=== PATIENT | female | born 1980 | race Caucasian/White ===

== ENCOUNTER 2017-12-24 22:35 | Emergency (ER) | payer OTHER ==
[~2017-12-24] VITALS: Ht 160 cm; Wt 69.6 kg
[~2017-12-24 22:35] MED LIST: CIPRO250 M1 PO; NORCO 5-325 TA1 EACH PO; TAMSULOSIN HCL0.4 MG PO
[2017-12-24 23:16] LABS: HEMATOCRIT 40.8 % (37.0-47.0); HEMOGLOBIN 14.1 gm/dL (12.0-15.0); MCH 32.1 pg (26.0-34.0); MCHC 34.6 g/dL (28.0-37.0); MCV 92.8 fL (80.0-100.0); MPV 7.5 fl. (7.2-11.1); NUCLEATED RBCS 0 /100WBC; PLATELET COUNT* 193 thou/uL (150-400); RDW-CV 12.5 % (10.5-14.5); WBC 6.2 thou/uL (4.0-11.0)
[2017-12-24 23:21] LABS: URINE BILIRUBIN NEGATIVE (Negative); URINE BLOOD 3+ (Negative); URINE CLARITY CLEAR; URINE COLOR YELLOW; URINE GLUCOSE-RANDOM NEGATIVE (Negative); URINE KETONES NEGATIVE (Negative); URINE LEUKOCYTES-REFLEX 1+ (Negative); URINE NITRITE-REFLEX NEGATIVE (Negative); URINE PROTEIN 1+ (Negative); URINE UROBILINOGEN 0.2 E.U./dl (0.2-1.0)
[2017-12-24 23:23] LABS: CALCIUM 8.3 mg/dL (8.5-10.1); CREATININE 0.6 mg/dL (0.6-1.3); POTASSIUM 3.7 mmol/L (3.5-5.1)
[2017-12-24 23:30] LABS: BACTERIA-REFLEX >30 Many /HPF (None Seen); CASTS None Seen /LPF (None Seen); CRYSTALS None Seen /LPF (None Seen); MUCUS 0-3 Light strn/LPF (None Seen); SQUAMOUS 0-3 Few /LPF (0-3); URINE RBC >20 Many /HPF (0-2); WBC CLUMPS Few (None Seen)
[2017-12-24 23:34] LABS: ALBUMIN 3.7 g/dL (3.4-5.0); TOTAL BILIRUBIN 0.2 mg/dL (<0.1-1.0); TOTAL PROTEIN 7.3 g/dL (6.4-8.2)
[2017-12-25 00:15] LABS: ABSOLUTE EOSINOPHILS 0.2 thou/uL (0.0-0.7); ABSOLUTE LYMPHOCYTES 2.9 thou/uL (0.8-5.3); ABSOLUTE MONOCYTES 0.2 thou/uL (0.0-1.2); ABSOLUTE NEUTROPHILS 2.9 thou/uL (1.6-8.1); ATYPICAL LYMPHS 2 %
[2017-12-25 00:16] LABS: CLUMPED PLTS FEW; PLATELET ESTIMATE ADEQUATE
[2017-12-25] MEDS ORDERED: CIPROFLOXACIN500 M1 PO (00:36)
[2017-12-25] MEDS ORDERED: PYRIDIUM200 MG PO (00:36)
[2017-12-25 00:56] VITALS: BP 111/76
== END 2017-12-25 00:58 | disposition home or self-care (01) ==
LOC: M.ERS 22:35
PROVIDERS: Personal Emergency Response Attendant
DX: N39.0 Urinary tract infection, site not specified (principal); Z88.0 Allergy status to penicillin

== ENCOUNTER 2018-03-21 20:35 | Inpatient (IN) | payer OTHER ==
[~2018-03-21] VITALS: Ht 162.6 cm; Wt 65.3 kg
[~2018-03-21 20:35] MED LIST changes: +CIPROFLOXACIN500 M1 PO; +PYRIDIUM200 MG PO
[2018-03-21 20:42] VITALS: BP 137/77
[2018-03-21 21:03] LABS: URINE BILIRUBIN NEGATIVE (Negative); URINE BLOOD NEGATIVE (Negative); URINE CLARITY CLEAR; URINE COLOR YELLOW; URINE GLUCOSE-RANDOM NEGATIVE (Negative); URINE KETONES NEGATIVE (Negative); URINE LEUKOCYTES-REFLEX NEGATIVE (Negative); URINE NITRITE-REFLEX NEGATIVE (Negative); URINE PROTEIN NEGATIVE (Negative); URINE SPECIFIC GRAVITY <= 1.005 (1.005-1.030); URINE UROBILINOGEN 0.2 E.U./dl (0.2-1.0)
[2018-03-21 21:14] LABS: HEMATOCRIT 38.9 % (37.0-47.0); HEMOGLOBIN 13.2 gm/dL (12.0-15.0); MCH 31.7 pg (26.0-34.0); MCV 93.3 fL (80.0-100.0); MPV 7.9 fl. (7.2-11.1); NUCLEATED RBCS 0 /100WBC; PLATELET COUNT* 127 thou/uL (150-400); RBC 4.17 mil/uL (4.20-5.00); RDW-CV 12.9 % (10.5-14.5)
[2018-03-21 21:21] LABS: CALCIUM 8.2 mg/dL (8.5-10.1); CREATININE 0.7 mg/dL (0.6-1.3); POTASSIUM 3.3 mmol/L (3.5-5.1)
[2018-03-21 21:26] LABS: ALBUMIN 3.6 g/dL (3.4-5.0); TOTAL BILIRUBIN 1.1 mg/dL (<0.1-1.0); TOTAL PROTEIN 6.9 g/dL (6.4-8.2)
[2018-03-21 21:38] LABS: ABSOLUTE EOSINOPHILS 0.1 thou/uL (0.0-0.7); ABSOLUTE LYMPHOCYTES 3.1 thou/uL (0.8-5.3); ABSOLUTE MONOCYTES 0.2 thou/uL (0.0-1.2); ABSOLUTE NEUTROPHILS 1.7 thou/uL (1.6-8.1); ATYPICAL LYMPHS 18 %; MYELOCYTES 2 %; PLATELET ESTIMATE ADEQUATE; TOXIC GRANULATION 1+
[2018-03-21 21:58] LABS: INFLUENZA A ANTIGEN None Detected (None Detect); INFLUENZA B ANTIGEN None Detected (None Detect)
[2018-03-21 23:17] VITALS: BP 120/79
[2018-03-22 00:04] VITALS: BP 144/95
--- NOTE | 2018-03-22 00:39 | NUR ---
ARRIVED FROM ER ALERT AND ORIENTED X4. ORIENTED TO ROOM AND BED CONTROLS. DENIES NEED FOR PAIN OR NAUSEA MEDICATIONS. NPO AT THIS TIME. ASSESSMENT CHARTED. CALL LIGHT WITHIN REACH. WILL CONTINUE TO MONITOR.
--- NOTE | 2018-03-22 05:51 | NUR ---
ALERT AND ORIENTED X4. UP WITH STAND BY ASSIST AND WALKER. PATIENT NOT WANTING TO BE BOTHERED DURING NIGHT AND SET UP ONLY TIMES HE WANTED US TO COME INTO HIS ROOM. FREQUENTLY REFUSING CARES AND MEDICATIONS. REFUSING ACCUCHECKS AND INSULIN. PATIENT TOLD WHY IT IS IMPORTANT TO MONITOR BLOOD SUGARS AND TAKE INSULIN IF BLOOD SUGAR HIGH. USING PO PAIN MEDICATION TO CONTROL RIGHT LEG PAIN. DRESSING REMAINS OVER RIGHT KNEE. 2 HEMOVACS PATENT TO RIGHT KNEE. CONTINUES ON IV ANTIBIODICS WITHOUT ADVERSE REACTIONS. CALL LIGHT WITHIN REACH
[2018-03-22 07:44] LABS: HEMATOCRIT 40.1 % (37.0-47.0); HEMOGLOBIN 13.6 gm/dL (12.0-15.0); MCV 94.2 fL (80.0-100.0); MPV 8.2 fl. (7.2-11.1); RBC 4.26 mil/uL (4.20-5.00); WBC 7.6 thou/uL (4.0-11.0)
--- NOTE | 2018-03-22 07:57 | NUR ---
ALERT AND ORIENTED X4. DENIES NEED FOR PAIN OR NAUSEA MEDICATION. RESTING QUIETLY ON HOURLY ROUNDS. NPO AT THIS TIME. IVF INFUSING WITHOUT DIFFICULTY. CALL LIGHT WITHIN REACH. WILL CONTINUE TO MONITOR.
[2018-03-22 08:00] LABS: ALBUMIN 3.3 g/dL (3.4-5.0); CALCIUM 8.1 mg/dL (8.5-10.1); CREATININE 0.7 mg/dL (0.6-1.3); POTASSIUM 3.7 mmol/L (3.5-5.1); TOTAL BILIRUBIN 1.7 mg/dL (<0.1-1.0); TOTAL PROTEIN 6.6 g/dL (6.4-8.2)
[2018-03-22 08:45] VITALS: BP 129/70
[2018-03-22] MEDS ORDERED: IBUPROFEN 200200 M1 PO (11:16)
[2018-03-22 13:55] VITALS: BP 129/70
--- NOTE | 2018-03-22 14:31 | NUR ---
PATIENT DISCHARGED FROM UNIT AT 1415. ALERT AND ORIENTED X 4. VITAL SIGNS STABLE ON ROOM AIR. IV DISCONTINUED. DENIES NAUSEA. PAIN BEING MANAGED WITH PAIN MEDICATION. DISCHARGE INSTRUCTIONS GIVEN TO PATIENT. LEFT WITH ALL BELONGINGS. PATIENT LEFT WITH VIA CAR.
[2018-03-22 14:49] VITALS: BP 129/70
[2018-03-24 02:07] LABS: HEPATITIS B SURFACE AG Negative (Negative)
== END 2018-03-22 14:15 | disposition home or self-care (01) | DRG 866 ==
LOC: M.ERS 20:35 → M.TBA-ER 22:43 → M.ORTHSURG 23:36
PROVIDERS: Internal Medicine; Physician Assistant; ADMIT Internal Medicine
DX: B27.90 Infectious mononucleosis, unspecified without complication (principal); K80.20 Calculus of gallbladder without cholecystitis without obstruction; R74.8 Abnormal levels of other serum enzymes

== ENCOUNTER 2018-03-24 15:22 | Inpatient (IN) | payer OTHER ==
[~2018-03-24] VITALS: Ht 162.6 cm; Wt 65.8 kg
[~2018-03-24 15:22] MED LIST changes: +IBUPROFEN 200200 M1 PO
[2018-03-24 15:36] VITALS: BP 134/78
[2018-03-24 15:43] LABS: HEMATOCRIT 40.9 % (37.0-47.0); MCH 31.7 pg (26.0-34.0); MCHC 34.4 g/dL (28.0-37.0); MCV 92.4 fL (80.0-100.0); MPV 8.2 fl. (7.2-11.1); NUCLEATED RBCS 0 /100WBC; PLATELET COUNT* 138 thou/uL (150-400); RBC 4.43 mil/uL (4.20-5.00); WBC 11.9 thou/uL (4.0-11.0)
[2018-03-24 15:47] LABS: URINE BLOOD NEGATIVE (Negative); URINE CLARITY CLEAR; URINE COLOR YELLOW; URINE GLUCOSE-RANDOM NEGATIVE (Negative); URINE LEUKOCYTES-REFLEX NEGATIVE (Negative); URINE NITRITE-REFLEX NEGATIVE (Negative); URINE PROTEIN TRACE (Negative); URINE UROBILINOGEN 0.2 E.U./dl (0.2-1.0)
[2018-03-24 15:53] LABS: URINE KETONES 3+ (Negative)
[2018-03-24 15:57] LABS: ICTOTEST (BILI CONFIRMATORY) Positive (Negative); URINE BILIRUBIN 2+ (Negative)
[2018-03-24 15:58] LABS: ACETEST (KETONE CONFIRMATORY) Large (Negative)
[2018-03-24 16:01] LABS: TROPONIN-I LEVEL <0.06 ng/mL (<0.06)
[2018-03-24 16:03] LABS: CALCIUM 8.1 mg/dL (8.5-10.1); CREATININE 0.7 mg/dL (0.6-1.3); POTASSIUM 3.6 mmol/L (3.5-5.1)
[2018-03-24 16:13] LABS: ALBUMIN 3.1 g/dL (3.4-5.0); TOTAL BILIRUBIN 2.8 mg/dL (<0.1-1.0); TOTAL PROTEIN 6.9 g/dL (6.4-8.2)
[2018-03-24 16:18] LABS: ABSOLUTE BASOPHILS 0.1 thou/uL (0.0-0.2); ABSOLUTE MONOCYTES 1.5 thou/uL (0.0-1.2); ABSOLUTE NEUTROPHILS 2.3 thou/uL (1.6-8.1); ATYPICAL LYMPHS 35 %
[2018-03-24 16:20] LABS: PLATELET ESTIMATE DECREASED
[2018-03-24 20:45] VITALS: BP 114/74
[2018-03-24 21:15] VITALS: BP 118/71
[2018-03-25 04:35] VITALS: BP 112/72
[2018-03-25 05:16] LABS: HEMATOCRIT 38.3 % (37.0-47.0); MCH 32.1 pg (26.0-34.0); MCHC 34.1 g/dL (28.0-37.0); MCV 94.1 fL (80.0-100.0); MPV 8.4 fl. (7.2-11.1); RBC 4.06 mil/uL (4.20-5.00); RDW-CV 13.2 % (10.5-14.5); WBC 11.4 thou/uL (4.0-11.0)
[2018-03-25 05:33] LABS: ALBUMIN 2.7 g/dL (3.4-5.0); CALCIUM 7.9 mg/dL (8.5-10.1); CREATININE 0.6 mg/dL (0.6-1.3); POTASSIUM 3.3 mmol/L (3.5-5.1); TOTAL BILIRUBIN 1.9 mg/dL (<0.1-1.0); TOTAL PROTEIN 6.1 g/dL (6.4-8.2)
--- NOTE | 2018-03-25 07:46 | NUR ---
PATIENT ARRIVED ON FLOOR FROM ER ABOUT 2100. PATIENT ADMISSION HISTORY AND ASSESSMENT WAS COMPLETED CHARTED. IV FLUIDS AND ANTIBIOTICS WERE STARTED ORDERED. PATIENT WAS GIVEN PAIN MEDICINE TWICE FOR HEADACHE AND ONCE FOR ABDOMINAL PAIN. WILL CONTINUE TO MONITOR.
[2018-03-25 08:00] VITALS: BP 113/70
--- NOTE | 2018-03-25 14:24 | EKG ---
[place] [address] ELECTROCARDIOGRAM REPORT Name: KRISTI TURCIOS Janette Room: [address] ADM IN ..#: [id number] Admission: 03/24/18 Attend Phys: Rosa Mccormick MD Discharge: Date of : 80 Report #: [id number] THIS REPORT FOR: //name// [facility] ED Test Date: 2018-03-24 Test Time: 15:54:46 Pat Name: KRISTI TURCIOS Department: Room: [facility] Gender: F Surgical Services Assistant: Matt BRODERICK : 1980 Requested By: Jodi Rizvi Order Number: [id number] MD: Lonnie Garza Measurements Intervals [place] Rate: 97 P: 49 [place]: 127 QRS: 14 QRSD: 86 T: 7 QT: 362 QTc: 460 Interpretive Statements Sinus rhythm Low voltage, precordial leads Borderline T wave abnormalities Baseline wander in lead(s) V3 Compared to ECG 11/25/2013 00:47:56 Low QRS voltage now present Sinus tachycardia no longer present Electronically Signed On 03-25-2018 14:24:18 [employer]ARE GROUP LEADER by Lonnie Garza [email or web address] <ELECTRONICALLY SIGNED> By: Lonnie Garza MD, [facility] 03/25/18 1424 1554 1554 Lonine Garza MD, [facility] /EPI
--- NOTE | 2018-03-25 16:35 | NUR ---
ASSUMMED CARE OF PT AT 0730, PT ALERT AND ORIENTED, PT STATES ABDOMINAL PAIN IS BETTER THIS AM, BUT HAS MIGRAINE, OBTAINED ORDER FOR HEADACHE MEDICATION, ICE BAG GIVEN TO PT, IV PATENT AND INFUSING, PT HAD MRCP COMPLETED, TOLERATED WELL, ADVANCED TO CLEAR LIQUID DIET, PT STATES THAT AFTER EATING HER ABDOMINAL PAIN INCREASED STATES A "4" AFTER EATING BUT DOES NOT WANT PAIN MEDS AT THIS TIME, COMPLAINS OF NAUSEA MEDICATED PER ORDER, POTASSIUM LOW, REPLACED PER ORDERS, PT VISITING WITH FAMILY AND RESTING THRU OUT SHIFT, AMBULATES TO BATHROOM, PT STATES SHE FEELS STEADY WHEN UP, HOURLY ROUNDING COMLETED, ASSESSMENT COMPLETE, WILL CONTINUE TO MONITOR.
[2018-03-25 20:00] VITALS: BP 131/92
[2018-03-26 04:57] LABS: ABSOLUTE BASOPHILS 0.1 thou/uL (0.0-0.2); ABSOLUTE LYMPHOCYTES 10.1 thou/uL (0.8-5.3); ABSOLUTE MONOCYTES 0.7 thou/uL (0.0-1.2); ABSOLUTE NEUTROPHILS 2.4 thou/uL (1.6-8.1); BASOPHILS 0.7 %; EOSINOPHILS 0.2 %; HEMATOCRIT 37.8 % (37.0-47.0); HEMOGLOBIN 12.8 gm/dL (12.0-15.0); LYMPHOCYTES 75.6 %; MCH 31.9 pg (26.0-34.0); MCV 93.8 fL (80.0-100.0); MONOCYTES 5.5 %; MPV 8.2 fl. (7.2-11.1); NUCLEATED RBCS 0 /100WBC; PLATELET COUNT* 135 thou/uL (150-400); RBC 4.03 mil/uL (4.20-5.00); RDW-CV 13.4 % (10.5-14.5); WBC 13.3 thou/uL (4.0-11.0)
[2018-03-26 05:18] LABS: ALBUMIN 2.7 g/dL (3.4-5.0); CALCIUM 7.9 mg/dL (8.5-10.1); CREATININE 0.6 mg/dL (0.6-1.3); MAGNESIUM 1.8 mg/dL (1.8-2.4); PHOSPHORUS* 2.5 mg/dL (2.5-4.9); TOTAL BILIRUBIN 1.4 mg/dL (<0.1-1.0); TOTAL PROTEIN 5.9 g/dL (6.4-8.2)
--- NOTE | 2018-03-26 06:11 | NUR ---
PATIENT SLEPT PART OF THE NIGHT. PATIENT WAS GIVEN PAIN MEDICINE ONCE FOR A HEADACHE. PATIENT DID RUN A LOW GRADE TEMP OF 99.6 WAS THE HIGHEST. IV FLUIDS AND ANTIBIOTIC WAS GIVEN ORDERED. PATIENT TOOK A SHOWER THIS MORNING AND IS HOPING TO GO HOME TODAY. WILL CONTINUE TO MONITOR.
[2018-03-26 08:00] VITALS: BP 128/80
[2018-03-26 15:59] VITALS: BP 129/87
[2018-03-26 19:51] VITALS: BP 132/84
--- NOTE | 2018-03-27 05:36 | NUR ---
VSS, SEE ASSESSMENT. C/O HEADACHE, PRN EXCEDRIN AND TYLENOL GIVEN ORDERED WITH PARTIAL RELIEF. PT REPORTED CONSISTENT MILD NAUSEA WITH NO EMESIS, DECLINED PRN ZOFRAN THROUGHOUT THE NIGHT STATING THAT IT WAS INEFFECTIVE. PT REQUESTED PRN PHENERGAN THIS AM, GIVEN ORDERED. DENIED SOA, O2 SAT 98% ON RA. CALL LIGHT WITHIN REACH.
[2018-03-27 08:00] VITALS: BP 132/84
[2018-03-27] MEDS ORDERED: PHENERGAN 25 MG25 M1 PO (12:42)
[2018-03-27 12:43] VITALS: BP 132/84
--- NOTE | 2018-03-27 13:52 | NUR ---
DISCHARGE ORDERS RECEIVED, VSS, NO DISTRESS NOTED, ES PO WELL. IV ACCESS REMOVED W/O INCIDENT, DISCHARGE INSTRUCTIONS, F/U APPTS AND SCRIPTS DISCUSSED WITH AND GIVEN TO PATIENT, DENIES QUESTIONS. PERSONAL EFFECTS GATHERED, ACCOUNTED FOR, IN COMPANY OF PATIENT, TRANPORTED TO MAIN ENTRANCE VIA WHEELCHAIR IN STABLE CONDITION.
== END 2018-03-27 13:56 | disposition home or self-care (01) | DRG 445 ==
LOC: M.ERS 15:22 → M.TBA-ER 18:16 → M.3W 18:16
PROVIDERS: Nurse Practitioner Family; Surgery; ADMIT Internal Medicine
DX: K80.00 Calculus of gallbladder with acute cholecystitis without obstruction (principal); R65.10 Systemic inflammatory response syndrome (SIRS) of non-infectious origin without acute organ dysfunction; B27.90 Infectious mononucleosis, unspecified without complication; D72.829 Elevated white blood cell count, unspecified; E80.6 Other disorders of bilirubin metabolism; R74.0 Nonspecific elevation of levels of transaminase and lactic acid dehydrogenase [LDH]; K80.20 Calculus of gallbladder without cholecystitis without obstruction; E87.6 Hypokalemia; Z88.0 Allergy status to penicillin; Z79.899 Other long term (current) drug therapy